=== PATIENT | male | born 1960 | race Caucasian/White ===

== ENCOUNTER 2016-07-17 12:52 | Outpatient (RCR) | payer BC ==
[2016-01-02 16:55] VITALS: BP 138/88
[~2016-07-17 12:52] MED LIST: ASPIRIN ADULT L81 M3 PO; BYSTOLIC PO; DAILY VALUE1 EACH PO; FISH OIL500 M1 PO; VITAMIN C500 MG PO; ZESTRIL 20MG TA20 MG PO; [UNRECOGNIZED DRUG - OTHER]
[2016-10-15] MEDS ORDERED: NIACIN500 M5 PO (16:13)
[2016-10-15] MEDS ORDERED: CRESTOR5 MG PO (16:13)
== END 2016-10-15 | disposition home or self-care (01) ==
LOC: PT
DX: M54.5 Low back pain (principal)

== ENCOUNTER → 2016-10-15 | Outpatient (CLI) | payer BC ==
[~2016-10-15] MED LIST changes: +CRESTOR5 MG PO; +NIACIN500 M5 PO
[2016-10-15 16:06] VITALS: BP 162/92
== END ==
LOC: LAB 16:01
DX: R00.2 Palpitations (principal); I45.10 Unspecified right bundle-branch block; G47.33 Obstructive sleep apnea (adult) (pediatric); I10 Essential (primary) hypertension

== ENCOUNTER → 2018-09-09 | Outpatient (CLI) | payer BC ==
[2016-10-15 16:06] VITALS: BP 162/92
== END ==
LOC: RAD 10:49
DX: M77.32 Calcaneal spur, left foot (principal); M79.671 Pain in right foot; M10.9 Gout, unspecified

== ENCOUNTER 2021-06-02 20:00 | Emergency (ER) | payer BC ==
[~2021-06-02] VITALS: Ht 182.9 cm; Wt 100.0 kg
[2021-06-02] MEDS ORDERED: MASON NATURAL N1 CAP PO (20:31)
[2021-06-02 20:40] LABS: BASO # 0.01 K/mm3 (0.02-0.10); EOS # 0.04 K/mm3 (0.04-0.40); EOS % 0.5 % (0.0-4.0); HEMATOCRIT 42.6 % (42.0-52.0); HEMOGLOBIN 14.6 g/dL (13.5-18.0); LYMPH# 1.81 K/mm3 (1.50-4.00); MEAN CELL VOLUME 96 fl (78-100); MEAN CORPUSCULAR HEMOGLOBIN 33 pg (27-31); MEAN CORPUSCULAR HGB CONC 34 g/dL (33-37); MEAN PLATELET VOLUME 10.4 fl (7.4-10.4); MONO # 0.64 K/mm3 (0.20-0.80); NEU # 6.26 K/mm3 (1.40-6.50); PLATELET COUNT 171 K/mm3 (130-400); RED BLOOD COUNT 4.45 M/mm3 (4.20-5.60); RED CELL DISTRIBUTION WIDTH 12.3 % (11.5-14.5); WHITE BLOOD COUNT 8.8 K/mm3 (4.8-10.8)
[2021-06-02 20:46] LABS: ALBUMIN 3.9 g/dL (3.5-5.0); POTASSIUM 3.4 mmol/L (3.5-5.1)
[2021-06-02 20:47] LABS: CALCIUM 9.6 mg/dL (8.3-10.5)
[2021-06-02 20:49] LABS: TOTAL PROTEIN 6.4 g/dL (6.4-8.3)
[2021-06-02 20:50] LABS: TOTAL BILIRUBIN 0.3 mg/dL (0.2-1.2)
[2021-06-02 20:58] LABS: PARTIAL THROMBOPLASTIN TIME 20.9 SECONDS (21.0-32.0); PROTHROMBIN TIME 10.1 SECONDS (9.0-12.0)
[2021-06-02 21:47] VITALS: BP 135/78
== END 2021-06-02 21:47 | disposition home or self-care (01) ==
LOC: ED 20:00
PROVIDERS: Nurse Practitioner
DX: R05.9 Cough, unspecified (principal)

== ENCOUNTER → 2021-12-24 | Outpatient (REF) ==
[~2021-12-24] MED LIST changes: +MASON NATURAL N1 CAP PO
== END ==
LOC: LAB 08:21
DX: I10 Essential (primary) hypertension (principal); E78.2 Mixed hyperlipidemia; R39.12 Poor urinary stream; Z87.39 Personal history of other diseases of the musculoskeletal system and connective tissue

== ENCOUNTER → 2022-09-02 | Outpatient (CLI) | payer BC ==
[2022-09-02 11:48] LABS: ALBUMIN 4.6 g/dL (3.4-4.8); POTASSIUM 4.7 mmol/L (3.5-5.1)
[2022-09-02 11:51] LABS: TOTAL PROTEIN 6.7 g/dL (6.2-8.1)
[2022-09-02 11:53] LABS: TOTAL BILIRUBIN 0.8 mg/dL (0.2-1.2)
== END ==
LOC: LAB 11:30
PROVIDERS: Family Medicine
DX: R10.11 Right upper quadrant pain (principal)

== ENCOUNTER → 2022-09-04 | Outpatient (CLI) | payer BC | LOC: RAD 10:45 | DX: K80.20 Calculus of gallbladder without cholecystitis without obstruction (principal) ==

== ENCOUNTER → 2023-12-16 | Outpatient (CLI) | payer BC | LOC: LAB 12:30 | DX: R19.7 Diarrhea, unspecified (principal) ==